=== PATIENT | male | born 1985 | race Caucasian/White ===

== ENCOUNTER 2021-02-18 18:42 | Emergency (ER) | payer OTHER ==
--- NOTE | 2021-02-18 19:05 | ERPHSYRPT ---
- History of Present Illness Time Seen by Provider: 02/18/21 19:05 Source: patient Exam Limitations: no limitations Physician History: This is a 35-year-old obese white male who 9 days ago underwent an arthroscopic procedure on his right knee. He became concerned because there was some mild redness and a scant amount of abnormal drainage on the incision line site. He states he did not reinjure it. He did not fall. He has removed the bandages from the time of his surgery as instructed. He wanted to have the wound checked. He has no fevers or chills. Method of Injury: other (No new injury) Occurred: this afternoon Quality: other (No significant pain) Severity of Pain-Max: mild Severity of Pain-Current: none Lower Extremities Pain: knee: right Modifying Factors: Improves With: nothing Associated Symptoms: none Allergies/Adverse Reactions: Iodinated Contrast Media Allergy (Verified 02/18/21 19:11) Travel Risk - International Travel Have you traveled outside of the country in past 3 weeks: No - Coronavirus Screening Are you exhibiting any of the following symptoms?: No Close contact with a COVID-19 positive Pt in past 14-21 Days: No - Review of Systems Constitutional: No Symptoms Eyes: No Symptoms Ears, Nose, & Throat: No Symptoms Respiratory: No Symptoms Cardiac: No Symptoms Abdominal/Gastrointestinal: No Symptoms Genitourinary Symptoms: No Symptoms Musculoskeletal: No Symptoms Skin: Other (Scant drainage on medial incision site with suture in place) Neurological: No Symptoms Psychological: No Symptoms Endocrine: No Symptoms Hematologic/Lymphatic: No Symptoms Immunological/Allergic: No Symptoms All Other Systems: Reviewed and Negative - Past Medical History Neurological History: No Pertinent History Cardiac History: Coronary Artery Disease, High Cholesterol, Hypertension, Myocardial Infarction (NE) Respiratory History: No Pertinent History Endocrine Medical History: Diabetes Type II Musculoskeletal History: Other Other Medical History: PATIENT STATES IS "PRE-DIABETIC" AND NOT TAKING MEDS FOR HTN OR CHOLESTEROL DUE TO COST OF MEDICATIONS. - Past Surgical History Past Surgical History: Yes - Nursing Vital Signs Nursing Vital Signs: Initial Vital Signs Temperature 99.8 F 02/18/21 18:54 Pulse Rate 120 H 02/18/21 18:54 Respiratory Rate 18 02/18/21 18:54 Blood Pressure 175/100 02/18/21 18:54 O2 Sat by Pulse Oximetry 96 02/18/21 18:54 Pain Scale Pain Intensity 5 - Physical Exam General Appearance: no apparent distress, alert, anxiety, obese Eyes, Ears, Nose, Throat Exam: normal ENT inspection, moist mucous membranes Neck Exam: normal inspection, non-tender, supple, full range of motion Cardiovascular/Respiratory Exam: chest non-tender, no respiratory distress Gastrointestinal/Abdominal Exam: non-tender Back Exam: normal inspection, normal range of motion, No CVA tenderness, No vertebral tenderness Hips Exam: bilateral: non-tender, normal inspection, normal range of motion, no evidence of injury Legs Exam: bilateral leg: non-tender, normal inspection, normal range of motion, no evidence of injury Knees Exam: right knee: soft tissue tenderness (Postsurgical), swelling (Normal postsurgical), other (Normal postsurgical incision sites. Healing well with no evidence of infection.), left knee: non-tender, normal inspection, normal range of motion, no evidence of injury Ankle Exam: bilateral ankle: non-tender, normal inspection, normal range of motion, no evidence of injury Foot Exam: bilateral foot: non-tender, normal inspection, normal range of motion, no evidence of injury Neuro/Tendon Exam: normal sensation, normal motor functions, normal tendon functions Mental Status Exam: alert, oriented x 3, cooperative Skin Exam: other (Incision sites right knee postsurgical site no evidence of any acute infection.) SpO2 Interpretation: normal O2 Delivery: Room Air - Course Nursing assessment & vital signs reviewed: Yes Ordered Tests: Medication Summary Discontinued Medications Generic Name Dose Route Start Last Admin Trade Name Freq PRN Reason Stop Dose Admin Cephalexin HCl 500 mg 02/18/21 19:12 Keflex 500 Mg PO 02/18/21 19:13 STAT ONE - Progress Progress: unchanged Counseled pt/family regarding: diagnosis, need for follow-up - Departure Departure Disposition: Home Clinical Impression: Visit for wound check Condition: Stable Critical Care Time: No Referrals: NICOLAS JONES NP [Primary Care Provider] - Additional Instructions: Keep postsurgical incision site clean daily with soap and water and hydrogen peroxide. May apply thin layer of antibiotic ointment once a day. Cover each site with a Band-Aid. Take your medication as prescribed. Follow-up with your surgeon on Saturday to discuss your incision site concerns and for further management. Prescriptions: Cephalexin Mh 500 mg [Keflex 500 mg] 500 mg PO TID #21 capsule
[2021-02-18] MEDS ORDERED: KEFLEX 500 MG PO ONE (19:12)
[2021-02-18] MEDS ORDERED: KEFLEX 500 MG ONE (20:02)
[2021-02-18 20:05] VITALS: BP 139/89; PULSE 89; O2SAT 97
== END 2021-02-18 20:15 | disposition home or self-care (01) ==
LOC: ED 18:42
DX: Z48.00 Encounter for change or removal of nonsurgical wound dressing (principal); Z98.890 Other specified postprocedural states
CPT/HCPCS: 99283; A9270-GY